=== PATIENT | male | born 1970 | race Caucasian/White ===

== ENCOUNTER → 2016-12-29 07:10 | Outpatient (CLI) | payer OTHER | END | disposition home or self-care (01) | LOC: D.MRI 07:10 | DX: M25.551 Pain in right hip (principal) ==

== ENCOUNTER 2018-05-24 14:08 | Emergency (ER) | payer SELFPAY ==
[~2018-05-24] VITALS: Ht 172.7 cm; Wt 86.4 kg
[2018-05-24 14:22] VITALS: BP 119/105; Ht 172.7 cm; Wt 86.4 kg
== END 2018-05-24 17:36 | disposition home or self-care (01) ==
LOC: D.ER 14:08
DX: S01.511A Laceration without foreign body of lip, initial encounter (principal); X58.XXXA Exposure to other specified factors, initial encounter; Y93.9 Activity, unspecified; Y92.9 Unspecified place or not applicable